=== PATIENT | male | born 1945 | race Caucasian/White ===

== ENCOUNTER 2018-06-03 09:07 | Inpatient (IN) ==
[~2018-06-03 09:07] MED LIST: Bacitracin 50,000 UNIT, Polymyxin B Sulfate 500,000 UNIT, Sodium Chloride IRRigation 1,... IR ONE
[2018-06-03] MEDS ORDERED: CeFAZolin Syr 2,000MG/20 ML 2,000 MG/20 ML SYRINGE IVPB ONE (09:32)
[2018-06-03] MEDS ORDERED: Albuterol 2.5 MG/3 ML NEBULIZER IH ONE ×2 (09:32→13:28)
[2018-06-03] MEDS ORDERED: Lidocaine -MPF 4% 5 ML AMPUL ONE (09:40)
[2018-06-03] MEDS ORDERED: Lidocaine -MPF 2% 2 ML VIAL ONE (09:40)
[2018-06-03] MEDS ORDERED: *HR* Rocuronium Bromide 50 MG/5 ML VIAL ONE (09:40)
[2018-06-03] MEDS ORDERED: *HR* Succinylcholine 200 MG/10 ML VIAL IVP ONE (09:40)
[2018-06-03] MEDS ORDERED: *HR* Propofol 200 MG/20 ML VIAL IVP ONE ×2 (09:40→14:01)
[2018-06-03] MEDS ORDERED: *HR* FentaNYL (PF) 100 MCG/2 ML VIAL ONE ×3 (09:43→14:45)
[2018-06-03] MEDS ORDERED: *HR* Midazolam HCl 2 MG/2 ML VIAL ONE (09:44)
--- NOTE | 2018-06-03 09:46 | Anesthesia Evaluation PreOp ---
Date of Encounter: 06/03/18 Time of Encounter: 09:44 - Past History Planned Operation: PLIF L3-L4 Cardiac History: HTN Pulmonary History: Smoker (52 years), COPD [employer] History: Denies Any Significant HX Other Medical History: GERD Anesthesia History: No Prior Anesthetic Complications, Past Anesthesia Alcohol Use: rarely Drug use: none Medications and Allergies Docusate [Colace] 100 mg PO BID #30 capsule 03/04/17 [Rx] Etodolac 500 mg PO BID 03/04/17 [History] Gabapentin [Neurontin] 800 mg PO TID 03/04/17 [History] Lisinopril [Zestril] 10 mg PO DAILY 03/04/17 [History] OxyCODONE/APAP 5/325 [Percocet 5/325 MG] 1 each PO Q4HR PRN #30 tablet 03/04/17 [Rx] hydrOXYzine HCl [Hydroxyzine HCl] 25 mg PO Q8H PRN 03/04/17 [History] raNITIdine HCl [Zantac] 150 mg PO BID 03/04/17 [History] 3 Allergy/AdvReac Type Severity Reaction Status Date / Time No Known Allergies Allergy Verified 06/03/18 09:50 - Meds/Allergy Pre-op Review Medications Reviewed: Yes Allergies Reviewed: Yes Beta Blockers on Current Med List: No Anesthesia Results - Labs Laboratory Tests 05/28/18 05/28/18 05/28/18 09:23 09:23 09:23 WBC 9.0 Hgb 16.1 Hct 48.3 Plt Count 231 PT 9.5 INR 0.8 APTT 35.9 Sodium 139 Potassium 4.9 BUN 14 Creatinine 1.16 - Imaging EKG: report reviewed (05/28/2018 SINUS RHYTHM) Anesthesia Exam O2 Sat Height 1.75 m Height 1.75 m Weight 93.44 kg Weight 93.44 kg O2 Sat by Pulse Oximetry 95 Vital Signs Temp Pulse Resp BP Pulse Ox 97.9 F 95 18 137/93 95 06/03/18 09:38 06/03/18 09:38 06/03/18 09:38 06/03/18 09:38 06/03/18 09:38 Height: 5'9'' Weight: 206 lbs NPO (# of Hours): 8 Pain Scale: 6 (low back) Pain Scale Used: Numeric (1 - 10) - HEENT Pupil (Motor): EOMI Mallampati: III Teeth: Edentulous Oral Opening: Greater than 3 - [employer] LOC: Oriented [employer] Motor: Normal RUE, Normal LUE, Normal RLE, Normal LLE, Normal Face [employer] Sensory: Normal: RUE, LUE, RLE, LLE, Face - Cardiac Rhythm: Regular Murmur: None - Pulmonary Breath Sounds: bilateral Clear Respiratory Effort: Symmetrical Anesthesia Assess/Plan ASA Score: 2 Modified Backus Scale for Level of Consciousness: Cooperative, oriented, and tranquil Anesthetic Plan: General Monitoring Plan: Standard Monitors Recovery Plan: PACU
[2018-06-03] MEDS: Ringers Solution, Lactated 1,000 ML IVC SCH ×3 (10:04→18:24)
--- NOTE | 2018-06-03 11:27 | History & Physical Report ---
Date of Encounter: 06/03/18 Time of Encounter: 11:26 24 Hour HP Update - Instructions Instructions: If the History and Physical is less than 30 days old and was completed prior to A.M. admission and or procedure and has NOT been updated on calendar day of procedure please complete this update prior to performing procedure. - Update Patient reports changes in Medical Condition: No Changes in examination, assessment, or condition: No Changes in Medication: No Preop tests/diagnostics Reviewed: Yes Pre-Op MRSA Screen: Negative Surgery Remains Indicated: Yes Consent for Planned Operative Procedure(s) Verified: Yes - Pre-Operative Checklist Preoperative Checklist Indicated: No Prophylactic Antibiotic Ordered: Yes Home Medications Include Beta Alissa: No Beta Alissa Taken Today (Day of Surgery): No Beta Alissa Taken Yesterday (Day Prior to Surgery): No Is VTE Prophylaxis Indicated?: Yes
[2018-06-03] MEDS ORDERED: Propofol 500 MG/50 ML INFUS..BTL ONE ×2 (11:53→12:58)
[2018-06-03] MEDS ORDERED: *HR* PHENYLEPHRINE 1,000 MCG/10 ML SYRINGE IVP ONE ×2 (12:41→13:00)
[2018-06-03] MEDS ORDERED: *HR* Meperidine 25 MG/ML SYRINGE IVP PRN (13:28)
[2018-06-03] MEDS ORDERED: *HR* Promethazine 25 MG/ML VIAL IVP PRN (13:28)
[2018-06-03] MEDS ORDERED: Ondansetron 4 MG/2 ML VIAL IVP ONE (13:28)
[2018-06-03] MEDS ORDERED: *HR* Labetalol 20 MG/4 ML SYRINGE IVP PRN (13:28)
[2018-06-03] MEDS ORDERED: Dexamethasone 4 MG/ML VIAL ONE (13:34)
[2018-06-03] MEDS ORDERED: Neostigmine Methylsulfate 3 MG/3 ML SYRINGE ONE (13:40)
--- NOTE | 2018-06-03 14:37 | Orthopedic Operative Note ---
Date of procedure: 06/03/18 Pre-op diagnosis: Adjacent segment degeneration with lumb stenosis, status post lumbar fusion Post-op diagnosis: same Operation/Findings: Exploration of fusion, posterior lumbar interbody fusion L3-4: The patient successfully underwent general endotracheal anesthesia. The patient was given antibiotics prior to the start of the procedure. Compression boots and stockings were used for deep vein thrombosis prophylaxis. A Rodriguez catheter was placed. Leads for neuro monitoring were placed on the upper and lower extremities. This included the cranium. The neuro monitoring personnel confirmed there were satisfactory readings prior to the start of the procedure. The patient was turned prone on the Cullen table. The back was prepped and draped in the usual sterile fashion. An incision was was marked and centered over the involved L3-S1 levels in the mid line. The incision was deepened through the lumbar fascia. Bovie cautery and Zambrano elevators were used to reflect the paraspinal musculature at the lateral extent of the transverse processes of the involved L3, L4, L5, and S1 levels. Kimberli clamps were placed over the L3 and L4 spinous processes. An intraoperative lateral fluoroscopy graft was obtained. A conversation was held between the surgeon and radiologist and both confirmed we had the correct L3-4 operative levels. We noted a solid arthrodesis including bone growing over the rods in the previous fusion. This was over L4-S1. We removed the supraspinous and interspinous ligaments and subsequently the insertion of the ligamentum flavum on the undersurface of the proximal L3 lamina was dislodged with a curette. We then removed the ligamentum flavum as well as undercut the L3-L4 facets at this L3 and L4 level to decompress the lateral recesses. We also performed a L3 laminectomy. After the decompression, which was over and above that which was required to place the interbody graft, the foramen and traversing roots at this L3-L4 level were found to be free and patent. We also took part of the medial facets at L3-L4 in order to aid in the decompression. We then protected the neural elements including the thecal sac and traversing nerve root on the right with a dural retractor. We made an annulotomy into the L3-L4 disc space and then removed entire disc material using Pituitary instruments. We trialed various size grafts after the endplates were prepared for graft insertion. A 10 x 26 enter body graft fit well within L3-L4 the disc space. We obtained some bone from the posterior superior iliac spine through us a separate incision and combined with this with the bone which we had saved from the laminectomy portion of the procedure. This autograft bone was first placed in the anterior portion of the L3-L4 disc space and additional bone was placed within the interbody graft spacer. We then placed the interbody graft spacer obliquely across the L3-L4 disc space towards the midline while protecting the neural elements with a root retractor. When the graft was found to be in satisfactory position the utilization review specialist was removed. We then copiously irrigated the wound. We then decorticated the L3 and L4 transverse processes as well as the L3-L4 facet joints of the involved levels to aid in the posterolateral fusion. We placed autograft bone in the lateral gutters over these regions. We then closed the wound in layers with 1 Vicryl for the fascia, 2-0 Vicryl. Subcutaneous tissue, and Dermabond was used for skin closure. Sterile dressings were placed over the wound. The patient was turned supine on a hospital bed and extubated. All sponge instruments and needle counts were correct at the end of the procedure. The patient tolerated the procedure well without complications. Anesthesia: GETA Surgeon: Jag Lobato Jr Was there an marketing assistant manager present: No Estimated blood loss (cc): 75 Specimen: None Condition: stable Disposition: PACU
[2018-06-03] MEDS: *HR* HYDROmorphone (PF) 1 MG/ML SYRINGE IVP PRN ×4 (15:07→15:30)
[2018-06-03] MEDS ORDERED: Ondansetron 4 MG/2 ML VIAL IVP PRN (16:39)
[2018-06-03] MEDS ORDERED: Naloxone 0.4 MG/ML INJ IVP PRN (16:39)
[2018-06-03] MEDS ORDERED: hydrOXYzine pamoate 25 MG CAPSULE PO PRN (16:39)
[2018-06-03] MEDS ORDERED: Acetaminophen 325 MG TABLET PO PRN (16:39)
--- NOTE | 2018-06-03 17:52 | Anesthesia Evaluation Post Op ---
Date of Encounter: 06/03/18 Time of Encounter: 15:45 - Discharge PostOp Status: Transfer Patient to floor (Patient's vital signs have been reviewed. Patient is stable postoperatively and has adequately recovered from anesthesia. Patient is determined to have stable airway patency and respiratory function including respiratory rate and oxygen saturation. Patient has a stable heart rate, blood pressure and adequate hydration. Patients mental status is acceptable. Patients temperature is appropriate. Pain and nausea are adequately controlled.)
[2018-06-03] MEDS: Famotidine 20 MG TABLET PO SCH ×2 (18:27→22:51)
[2018-06-03] MEDS: *HR* HYDROcodone/Acet 5/325 mg TABLET PO PRN (20:25)
[2018-06-03] MEDS: *HR* OxyCODONE Immed Rel 5 MG TABLET PO PRN (22:47)
[2018-06-04 01:53] LABS: Basophils % 0.1 %; Eosinophils % 0.1 %; Hematocrit 44.2 % (37.5-50.1); Hemoglobin 14.8 g/dL (12.9-16.9); Immature Granulocytes % 0.5 % (0-4); Lymphocytes # 1.6 K/mcL (0.6-4.6); Lymphocytes % 11.1 %; Mean Corpuscular HGB Conc 33.5 g/dL (31.6-35.5); Mean Corpuscular Hemoglobin 30.2 pg (28.0-33.3); Mean Corpuscular Volume 90.2 fL (83.0-100.0); Mean Platelet Volume 10.1 fL (9.4-12.4); Monocytes # 1.1 K/mcL (0.0-1.3); Monocytes % 7.6 %; Neutrophils # 11.7 K/mcL (1.6-8.9); Platelet Count 194 K/mcL (140-400); Red Cell Distribution Width 13.8 % (11.5-14.5); Segmented Neutrophils % 80.6 %
[2018-06-04 02:04] LABS: BUN/Creatinine Ratio 15 (6-26); Blood Urea Nitrogen 16 mg/dL (8-23); Calcium 8.7 mg/dL (8.6-10.3); Carbon Dioxide 23 mEq/L (23-29); Chloride 108 mEq/L (98-107); Glucose 122 mg/dL (70-105); Osmolality,Calculated 284 (280-300); Potassium 4.3 mEq/L (3.5-5.1); Sodium 136 mEq/L (136-145); eGFR For Non-African Americans > 60 (> 60)
[2018-06-04] MEDS: Ringers Solution, Lactated 1,000 ML IVC SCH (03:49)
[2018-06-04] MEDS: *HR* OxyCODONE Immed Rel 5 MG TABLET PO PRN ×3 (03:51→17:53)
[2018-06-04] MEDS: Famotidine 20 MG TABLET PO SCH ×2 (06:56→17:53)
[2018-06-04] MEDS: *HR* HYDROcodone/Acet 5/325 mg TABLET PO PRN ×3 (06:56→21:02)
[2018-06-04] MEDS: Lisinopril 20 MG TABLET PO SCH (09:16)
--- NOTE | 2018-06-04 13:52 | Spine Progress Note ---
Date of Encounter: 06/04/18 Time of Encounter: 13:51 Subjective Principal diagnosis: Adjacent segment disease with lumbar stenosis Interval history: The patient is without complaints. Afebrile vital signs are stable. No flatus. Dressing is clean dry and intact. Neurovascularly intact with regard to bilateral lower extremities. Fires all upper and lower extremity motor groups. . Assessment :stable. Plan mobilize ,continue analgesics, discharge planning. Advance diet after flatus. Objective Vital signs: Vital Signs Temp Pulse Resp BP Pulse Ox 06/04/18 11:11 97.5 F L 79 16 150/88 96 06/04/18 06:40 98 F 76 18 129/74 95 06/04/18 03:47 97.8 F 71 18 126/84 94 06/04/18 00:10 98.0 F 77 20 119/71 95 06/03/18 19:59 97.5 F L 80 20 145/89 92 06/03/18 18:08 98.7 F 88 22 128/93 94 06/03/18 16:04 97.9 F 90 16 131/75 94 06/03/18 15:49 98.3 F 86 16 129/91 93 06/03/18 15:39 83 16 121/81 93 06/03/18 15:29 81 16 138/84 91 06/03/18 15:19 97.6 F 86 16 125/88 92 06/03/18 15:09 84 16 119/90 92 06/03/18 14:59 85 16 123/85 94 06/03/18 14:49 97.1 F L 89 16 109/79 98 Intake and Output 06/03/18 06/04/18 06/04/18 23:59 07:59 15:59 Intake Total 100 / 100 1000 / 1000 200 / 200 Output Total 475 / 475 1200 / 1200 200 / 200 Balance -375 / -375 -200 / -200 0 / 0 Intake: IV Fluids 100 / 100 1000 / 1000 Lactated Ringers 1,000 ML @ 100 1000 / 1000 mls/hr IVC .Q10H YAMINI Rx#: [id number] Ancef 2,000 MG In 0.9 % Sodium 100 / 100 Chloride 100 ML @ 200 mls/hr IVPB Q8H YAMINI Rx#:[id number] Oral 200 / 200 Output: Urine 200 / 200 Emesis 75 / 75 Catheter 400 / 400 1200 / 1200 Other: Meal Breakfast Percent of Meal Consumed 50% # Voids 1 Weight 93.5 kg Patient Weight 06/04/18 23:59 Weight 93.5 kg - Labs CBC & BMP: 06/04/18 01:24 06/04/18 01:24 Labs: Abnormal lab results WBC 14.5 K/mcL (4.3-11.1) H D 06/04/18 01:24 Neutrophils # 11.7 K/mcL (1.6-8.9) H 06/04/18 01:24 Chloride 108 mEq/L (98-107) H 06/04/18 01:24 Glucose 122 mg/dL (70-105) H 06/04/18 01:24 Consult Discharge Plan - Plan [facility]errals: [facility] [Primary Care Provider] -
[2018-06-05] MEDS: *HR* OxyCODONE Immed Rel 5 MG TABLET PO PRN ×4 (02:00→20:20)
[2018-06-05] MEDS: Famotidine 20 MG TABLET PO SCH ×2 (08:01→16:54)
[2018-06-05] MEDS: Lisinopril 20 MG TABLET PO SCH (08:01)
[2018-06-05] MEDS: *HR* HYDROcodone/Acet 5/325 mg TABLET PO PRN ×2 (11:33→23:41)
[2018-06-06] MEDS: *HR* OxyCODONE Immed Rel 5 MG TABLET PO PRN ×3 (04:48→14:33)
[2018-06-06] MEDS: Famotidine 20 MG TABLET PO SCH (09:25)
[2018-06-06] MEDS: Lisinopril 20 MG TABLET PO SCH (09:25)
[2018-06-06 11:38] VITALS: BP 138/87
--- NOTE | 2018-06-06 13:53 | Discharge Summary ---
- NOTES TO OUTPATIENT PROVIDER Notes to Outpatient Provider: Follow-up in spine Center in 2 weeks Date of Encounter: 06/06/18 Time of Encounter: 13:50 - Discharge Diagnosis (1) Adjacent segment disease with spinal stenosis Priority: Primary Status: Chronic - Hospital Course Hospital course: Mr. Goel is a 73 year old male The patient had an uneventful postoperative course. Progressed from intravenous analgesic needs to oral analgesic needs only. Remained neurovascularly intact and mobilized satisfactorily. All intraoperative and/or postoperative radiographic studies were satisfactory. Patient is discharged with plan for rehabilitation and follow-up in 2 weeks post discharge on analgesic medication and patient's home medications. - Time Spent with Patient Total time spent providing and/or coordinating discharge services: - Discharge Medications Prescriptions: OxyCODONE Immed Rel [Roxicodone 5 MG] 5 mg PO Q4HR PRN 7 Days #40 tablet PRN Reason: Severe Pain Home Medications: Docusate [Colace] 100 mg PO BID #30 capsule 03/04/17 [Rx] Etodolac 500 mg PO BID 03/04/17 [History] Gabapentin [Neurontin] 800 mg PO TID 03/04/17 [History] hydrOXYzine HCl [Hydroxyzine HCl] 25 mg PO Q8H PRN 03/04/17 [History] Acetaminophen [Tylenol] 650 mg PO Q6HR PRN 06/03/18 [History] Cholestyramine [Cholestyramine Resin] 1 - 2 each PO DAILY 06/03/18 [History] Lidocaine Patch [Lidoderm 5% patch] 1 each TP DAILY 06/03/18 [History] Lisinopril [Zestril] 20 mg PO DAILY 06/03/18 [History] raNITIdine HCl [Zantac] 150 mg PO BID 06/03/18 [History] OxyCODONE Immed Rel [Roxicodone 5 MG] 5 mg PO Q4HR PRN 7 Days #40 tablet [Rx] Allergies/Adverse Reactions: 3 Allergy/AdvReac Type Severity Reaction Status Date / Time No Known Allergies Allergy Verified 06/03/18 09:50 Date of admission: 06/03/18 16:01 [facility] physician: [facility] Consults: 06/03/18 16:39 Consult to Occupational Therapy [CONS] Routine Comment: Evaluate, develop and implement POC Reason for Consult: Postoperative rehabilitation Does patient have active BEDREST order?: No Is patient medically & hemodynamically stable?: Yes Patient assessed for mobility or mobilized this visit?: No Consult to Pastoral Services [CONS] Routine Comment: Consult to Spine Navigator [CONS] [CONS] Routine - Impressions ITS Impressions Fluoroscopy 06/03/18 12:40 IMPRESSION: Fluoroscopic images obtained intraoperatively for the purpose of guidance of surgical procedure. D/ / 06/03/2018 14:21:31 Jesse Gallagher MD / julio Interpreting Provider: Jesse Gallagher MD Lumbar Spine X-Ray 06/03/18 12:40 IMPRESSION: Fluoroscopic images obtained intraoperatively for the purpose of guidance of surgical procedure. D/ / 06/03/2018 14:21:31 Jesse Gallagher MD / julio Interpreting Provider: Jesse Gallagher MD Lumbar Spine X-Ray 06/06/18 07:00 IMPRESSION: Interbody fusion L3-L4. Anatomic alignment. No hardware complications. D/ / 06/06/2018 11:30:40 Khris Rosas MD / bcarter Interpreting Provider: Khris Rosas MD - Patient Status Disposition: Home, Self-Care Condition: Good Functional capacity at discharge: uses cane/walker Overall status at discharge: patient is progressing back to baseline - Discharge Instructions Follow Up With: [facility] [Primary Care Provider] - - Diet and Activity Activity: as per physical therapy Diet: advance to your usual diet
== END 2018-06-06 15:26 | disposition home or self-care (01) | DRG 455 ==
LOC: SAMDAY 09:07 → 3NENU 16:01
PROVIDERS: ADMIT Orthopaedic Surgery Orthopaedic Surgery of the Spine; ATTEND Orthopaedic Surgery Orthopaedic Surgery of the Spine